=== PATIENT | female | born 1990 | race Hispanic/Latino ===

== ENCOUNTER → 2022-01-22 09:55 | Outpatient (CLI) | payer OTHER, MEDICAID, SELFPAY ==
[2022-01-22 11:30] LABS: Appearance Urine UA CLEAR; Bilirubin Urine UA NEGATIVE (NEGATIVE); Color Urine UA YELLOW; Glucose Urine UA TRACE g/dL (Negative); Ketones Urine UA 1+ (NEGATIVE); Leukocyte Esterase Urine UA NEGATIVE (NEGATIVE); Nitrite Urine UA NEGATIVE (Negative); Occult Blood Urine UA NEGATIVE (Negative); Protein Urine UA NEGATIVE (Negative); Specific Gravity Urine UA 1.015 (1.000-1.035); Urobilinogen Urine UA 0.2 E.U./dL (0.2)
[2022-01-22 11:53] LABS: pH Urine UA 6.5 (4.5-8.0)
[2022-01-22 12:07] LABS: Bacteria Urine Many (>30); Culture Indicated Urine Cult Not Indicated; RBC Urine 0-1/HPF (0-5/HPF); Squamous Epithelial Cell Urine 10-30 /HPF (0-5/HPF); WBC Urine 0-1/HPF (0-5/HPF)
[2022-01-22 12:08] LABS: Pregnancy Test Urine Positive (Negative)
== END ==
PROVIDERS: PCP Family Medicine; Referring Provider Family Medicine; Visit Provider Family Medicine
DX: H93.A9 Pulsatile tinnitus, unspecified ear (principal); R10.9 Unspecified abdominal pain
CPT/HCPCS: 81001; 81025

== ENCOUNTER → 2022-02-18 11:50 | Outpatient (CLI) | payer OTHER, MEDICAID, SELFPAY ==
--- NOTE | 2022-02-18 11:51 | DI.US.S_ITS ---
PROCEDURE: US OB <= 14 WEEKS FETUS INDICATIONS: DATING AND VIABILITY OUTSIDE/PRIOR DATING DATA: Last menstrual period (LMP): Unknown LMP-based estimated date of delivery (JAYDA): Unknown. First dating scan (date and location): 02/18/2022. Estimated date of delivery (JAYDA) from first dating scan: 09/15/2022. The calculations are made using the ultrasound JAYDA of 09/15/2022. TECHNIQUE: Real-time scanning was performed of the fetus and maternal pelvic organs, with image documentation. Endovaginal scanning was also performed to better visualize the fetus and maternal ovaries. COMPARISON: None. FINDINGS: Embryo: Leith-Hatfield-rump length measures 3.2 cm and measures 10 weeks 1 day. Heart rate: 185 Maternal organs: Maternal ovaries are within normal limits. IMPRESSION: Single live intrauterine with a composite ultrasound age of 10 weeks 1 day. We strive to produce accurate, complete, and clear reports of imaging services. To assist us in improving patient care, this report was composed using standard report templates and voice recognition software. Therefore, it may contain abnormal punctuation, insertions and/or omissions. Occasional wrong-word or sound-alike substitutions may occur. Though we review the report and make efforts to correct it, we do recommend that the report be read carefully in proper context to recognize any text inaccuracies. Dictated by: Chris Sanchez M.D. on 02/18/2022 at 21:17 Approved by: Chris Sanchez M.D. on 02/18/2022 at 21:20
== END ==
PROVIDERS: PCP Family Medicine; Referring Provider Obstetrics & Gynecology; Visit Provider Obstetrics & Gynecology
DX: Z34.81 Encounter for supervision of other normal pregnancy, first trimester (principal); Z3A.10 10 weeks gestation of pregnancy
CPT/HCPCS: 76801; 76817

== ENCOUNTER → 2022-03-06 16:01 | Outpatient (CLI) | payer OTHER, MEDICAID, SELFPAY ==
[2022-03-06 16:57] LABS: Add Manual Diff / Slide Review NO; Basophils Absolute Auto 100 /uL (0-100); Basophils Percent Auto 0.9 % (0-2); Eosinophils Absolute Auto 300 /uL (0-450); Eosinophils Percent Auto 3.3 % (2-4); Hematocrit 37.1 % (36-46); Hemoglobin 12.5 g/dL (12.0-16.0); Lymphocytes Absolute Auto 3100 /uL (1100-4500); Mean Corpuscular HGB Conc 33.8 % (30-36); Mean Corpuscular Volume 82.7 fL (80-100); Monocytes Absolute Auto 700 /uL (0-900); Monocytes Percent Auto 6.4 % (3-14); Neutrophils Absolute Auto 6100 /uL (1500-7000); Neutrophils Percent Auto 59.4 % (50-75); Platelet Count 275 X10^3/uL (150-400); Red Blood Cell Count 4.48 X10^6/uL (4.0-5.2); Red Cell Distribution Width 14.4 % (11.6-14.8); White Blood Cell Count 10.3 X10^3/uL (4.5-11.0)
[2022-03-06 17:28] LABS: Alanine Aminotransferase 9 IU/L (<35); Albumin 3.9 g/dL (3.5-5.0); Albumin Globulin Ratio 1.2 (1.0-2.8); Alkaline Phosphatase 79 U/L (38-126); Aspartate Aminotransferase 18 IU/L (14-36); Bilirubin Total 0.2 mg/dL (0.2-1.3); Bilirubin Unconjugated 0.3 mg/dL (0.0-1.1); Globulin 3.3 g/dL (1.7-4.1); HEMOLYSIS < 15 (0-50); Total Protein 7.2 g/dL (6.3-8.2)
[2022-03-07 00:33] LABS: Hepatitis B Surface Antigen NEGATIVE s/c (NEGATIVE); Rubella Antibody IgG 5.9 IU/mL (>15)
[2022-03-07 00:50] LABS: HIV 1 & 2 Ab/Ag 4th Gen Combo NEGATIVE (NEGATIVE); Hep C Virus Ab w/Reflex Quant NEGATIVE s/c (NEGATIVE)
[2022-03-07 07:26] LABS: RPR Screen Non Reactive (Non Reactive)
[2022-03-07 09:26] LABS: Varicella IgG Antibody 520 index (Immune >165)
== END ==
PROVIDERS: PCP Family Medicine; Referring Provider Obstetrics & Gynecology; Visit Provider Obstetrics & Gynecology
DX: Z34.81 Encounter for supervision of other normal pregnancy, first trimester (principal); Z22.7 Latent tuberculosis
CPT/HCPCS: 36415; 80055; 80076; 86787; 86803; 86850; 86900; 86901; 87086; 87389

== ENCOUNTER → 2022-04-08 09:37 | Outpatient (CLI) | payer OTHER, MEDICAID, SELFPAY ==
[2022-04-08 10:42] LABS: Alanine Aminotransferase 11 IU/L (<35); Albumin 3.7 g/dL (3.5-5.0); Alkaline Phosphatase 90 U/L (38-126); Aspartate Aminotransferase 17 IU/L (14-36); Bilirubin Total 0.3 mg/dL (0.2-1.3); Bilirubin Unconjugated 0.4 mg/dL (0.0-1.1); Globulin 3.7 g/dL (1.7-4.1); HEMOLYSIS < 15 (0-50); Total Protein 7.4 g/dL (6.3-8.2)
[2022-04-10 19:36] LABS: AFP, Serum 19.2 ng/mL (.); Inhibin A, Dimeric 84.44 pg/mL (.); Inhibin A, MoM 0.64 (.); Maternal Ethnicity Other (.); Maternal Weight 201 lbs (.); Number of Fetuses No (.); OSBR Risk 1 IN 10000 (.); Results Report (.); Test Results *Screen Negative* (.); hCG, MoM 0.36 (.); hCG, Serum 9983 mIU/mL (.)
== END ==
PROVIDERS: PCP Family Medicine; Referring Provider Obstetrics & Gynecology; Visit Provider Obstetrics & Gynecology
DX: Z34.82 Encounter for supervision of other normal pregnancy, second trimester (principal); Z3A.17 17 weeks gestation of pregnancy; Z22.7 Latent tuberculosis; R31.9 Hematuria, unspecified
CPT/HCPCS: 36415; 80076; 82105; 82677; 84702; 86336; 87077; 87086; 87147

== ENCOUNTER → 2022-06-09 08:18 | Outpatient (CLI) | payer OTHER, MEDICAID, SELFPAY ==
--- NOTE | 2022-06-09 08:20 | DI.RAD.S_ITS ---
PROCEDURE: XR CHEST 2V INDICATIONS: Latent TB, R/O active disease TECHNIQUE: 2 views of the chest were acquired. COMPARISON: None. FINDINGS: Surgical changes and devices: None. Lungs and pleura: Lungs are clear. No pleural effusions or pneumothorax. Mediastinum: Mediastinal contours are normal. Heart size is normal. Bones and chest wall: No suspicious bony abnormalities. Soft tissues appear unremarkable. IMPRESSION: No acute cardiopulmonary findings. Dictated by: Kellen Garcia M.D. on 06/09/2022 at 9:25 Approved by: Kellen Garcia M.D. on 06/09/2022 at 9:25
[2022-06-09 09:55] LABS: Hematocrit 32.4 % (36-46); Hemoglobin 10.8 g/dL (12.0-16.0)
[2022-06-09 10:17] LABS: Alanine Aminotransferase 21 IU/L (<35); Albumin 3.1 g/dL (3.5-5.0); Albumin Globulin Ratio 0.9 (1.0-2.8); Alkaline Phosphatase 111 U/L (38-126); Aspartate Aminotransferase 21 IU/L (14-36); Bilirubin Total 0.3 mg/dL (0.2-1.3); Bilirubin Unconjugated 0.3 mg/dL (0.0-1.1); GTT (PREG) 1 Hour PP 50gm Dose 104 mg/dL (76-139); Globulin 3.4 g/dL (1.7-4.1); HEMOLYSIS < 15 (0-50); Total Protein 6.5 g/dL (6.3-8.2)
== END ==
PROVIDERS: PCP Family Medicine; Referring Provider Obstetrics & Gynecology; Visit Provider Obstetrics & Gynecology
DX: O99.830 Other infection carrier state complicating pregnancy; O12.12 Gestational proteinuria, second trimester; Z22.7 Latent tuberculosis; Z79.899 Other long term (current) drug therapy; Z3A.26 26 weeks gestation of pregnancy
CPT/HCPCS: 36415; 71046; 80076; 82570; 82950; 84156; 85014; 85018

== ENCOUNTER → 2022-06-09 08:56 | Outpatient (CLI) | payer OTHER, MEDICAID, SELFPAY ==
[2022-06-09 11:41] LABS: Creatinine Urine Random 187.8 mg/dL; Protein (Total) Urine Random < 5 mg/dL (0-12); Protein Creatinine Ratio Urine 0.02 GRAM/24H
== END ==
PROVIDERS: PCP Family Medicine; Visit Provider Obstetrics & Gynecology
DX: Z34.82 Encounter for supervision of other normal pregnancy, second trimester (principal); R80.9 Proteinuria, unspecified; Z3A.26 26 weeks gestation of pregnancy
CPT/HCPCS: 82570; 84156

== ENCOUNTER → 2022-07-21 14:59 | Outpatient (CLI) | payer OTHER, MEDICAID, SELFPAY ==
[2022-07-21 16:21] LABS: Alanine Aminotransferase 13 IU/L (<35); Albumin 3.3 g/dL (3.5-5.0); Alkaline Phosphatase 129 U/L (38-126); Aspartate Aminotransferase 20 IU/L (14-36); Bilirubin Total 0.4 mg/dL (0.2-1.3); Bilirubin Unconjugated 0.1 mg/dL (0.0-1.1); Globulin 3.4 g/dL (1.7-4.1); HEMOLYSIS < 15 (0-50); Total Protein 6.7 g/dL (6.3-8.2)
== END ==
PROVIDERS: PCP Family Medicine; Referring Provider Obstetrics & Gynecology; Visit Provider Obstetrics & Gynecology
DX: Z22.7 Latent tuberculosis (principal); Z79.899 Other long term (current) drug therapy
CPT/HCPCS: 36415; 80076

== ENCOUNTER → 2022-08-19 15:06 | Outpatient (CLI) | payer OTHER, MEDICAID, SELFPAY ==
[2022-08-19 16:20] LABS: Alanine Aminotransferase 14 IU/L (<35); Albumin 3.4 g/dL (3.5-5.0); Albumin Globulin Ratio 0.9 (1.0-2.8); Alkaline Phosphatase 144 U/L (38-126); Aspartate Aminotransferase 22 IU/L (14-36); Bilirubin Total 0.2 mg/dL (0.2-1.3); Globulin 3.6 g/dL (1.7-4.1); HEMOLYSIS < 15 (0-50)
== END ==
PROVIDERS: PCP Family Medicine; Referring Provider Obstetrics & Gynecology; Visit Provider Obstetrics & Gynecology
DX: Z34.83 Encounter for supervision of other normal pregnancy, third trimester (principal); A15.9 Respiratory tuberculosis unspecified; Z22.7 Latent tuberculosis; Z3A.36 36 weeks gestation of pregnancy
CPT/HCPCS: 36415; 80076

== ENCOUNTER 2022-09-09 19:41 | Inpatient (IN) | payer OTHER, MEDICAID, SELFPAY ==
--- NOTE | 2022-09-09 20:40 | P.HPOB_ITS ---
OB HPI Date/Time Date of admission: 09/09/22 Date Patient Seen: 09/09/22 Time Patient Seen: 20:40 History of Present Condition Chief complaint: IUP, 39+2 wks EGA, latent TB on isoniazid, GBS + : 3 Para: 2 Estimated Date of Delivery: 09/15/22 Estimated Gestational Age (weeks): 39+2 Narrative: Tatyana Jones is a 31 year old , JAYDA 09/15/2022 admitted for cervical ripening/induction now at 30+ 2 weeks gestational age due to her history of latent tuberculosis for which she is currently receiving isoniazid 300 mg daily and pyridoxine 25 mg. Liver functions have been normal throughout the course of her therapy but Maternal- Medicine consultation has recommended delivery prior to 40+ 0 weeks gestational age and therefore she is being induced at this time. course is largely been uneventful otherwise with the appropriate milestones and solid dating. GBS is positive. Indications Indication for induction OB: other (Latent tuberculosis on isoniazid therapy) History of Present care: good care Dating criteria: LMP confirmed by 1st trimester US Ultrasounds: normal 1st trimester US and normal mid trimester US Obstetrical complications: none Medical complications: other (Latent tuberculosis on isoniazid therapy) Preadmission Labs Blood type: B (+) positive -: Antibody screen: negative, GBS status: positive, HBsAG: negative, HIV: negative and RPR/VDLR: negative -: Chlamydia screen: not detected and Gonorrhea screen: not detected -: Rubella: not immune and Varicella: immune HCT: 33.9 HCAB: negative PAP: Normal Quad screen: Normal 1 hr GTT: 104 Prior (ies) History: ; x 2 Evaluation Evaluation Baseline heart rate: 125 Variability: Moderate (11-25) monitor accelerations: Present Monitor Decelerations: Absent Contraction Frequency (minutes): 4 Uterine Contraction Intensity: Mild Category of Tracing: Reactive Status: Category l Dilation (cm): 2 Effacement (%): 80 Dilation: 1-2 cm Effacement: >/=80% station: -2 Position of cervix: mid Consistency: soft Silvestre score: 8 [facility] Medical History (Updated 08/27/22 @ 08:24 by Robina Gauthier MD) Asthma Hearing loss Rectal fissure Sciatica Tuberculosis Surgical History (Updated 02/24/22 @ 09:29 by Soledad Brown RN) [place] teeth extracted Family History (Updated 02/24/22 @ 09:30 by Soledad Brown RN) Mother Hypertension COPD (chronic obstructive pulmonary disease) Social History marital status: unmarried,single number of children: 2 household members: friend(s) lives independently: Yes housing: house pets and animals: Yes (1 dog) education level: high school occupational status: employed 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, out of room for xrays, 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) special inocencio needs: No travel history: recent (domestic only) seatbelt use: always water heater temp set < 120 deg: Yes working smoke detector in home: Yes fire extinguisher in home: Yes carbon monox detector in home: Yes firearms in home: Yes firearms unloaded and locked: Yes do you feel safe at home: Yes Smoking Status: Former smoker Tobacco: How many years used: 5 second hand exposure: Yes (all housemates smoke outside) alcohol intake: former (occasionally 1-2 prior to ) substance use type: does not use during the past year weight has: remained stable well-balanced diet: about half the time daily servings fruits/ve-1 caffeine: Yes (Aware of 200mg limit) Meds Home Medications and Allergies Home Medications Medication Instructions Recorded Confirmed Type mecobalamin (vitamin B12) 1,000 1,000 mcg PO DAILY PRN per pt. 02/24/22 09/09/22 History mcg chewable tablet (B12 Active) prenat.vits,christiane,fes-gfcf-bstiy 1 tab PO DAILY 02/24/22 09/09/22 History isoniazid 300 mg tablet 300 mg PO DAILY #90 tabs 03/12/22 09/09/22 Rx pyridoxine (vitamin B6) 25 mg 25 mg PO DAILY #90 tabs 03/12/22 09/09/22 Rx tablet albuterol sulfate 90 mcg/actuation 2 puff inhalation Q6H PRN 05/06/22 09/09/22 Rx aerosol inhaler shortness of breath or wheezing #8.5 grams montelukast 10 mg tablet 10 mg PO DAILY #30 tabs 06/12/22 09/09/22 Rx (Singulair) Allergies Allergy/AdvReac Type Severity Reaction Status Date / Time No Known Drug Allergies Allergy Unverified 09/08/22 08:47 Review of Systems Review of Systems Narrative: Problem-specific ROS positives included in HPI OB Exam Vital signs Blood Pressure: 94/62 Pulse Rate: 63 Temperature: 96.6 F HENMT Head: normal to inspection, normocephalic and atraumatic Eyes General: appearance normal, both eyes and all related structures Resp Effort & Inspection: normal respiratory effort and able to speak in complete sentences Auscultation: clear to auscultation bilaterally Cardio Rate: regular rate Rhythm: regular rhythm Heart Sounds: S1 normal, S2 normal and no murmurs Extremities Lower extremity: Yes normal to inspection GI Inspection: normal to inspection Palpation: Yes soft and Yes no hepatosplenomegaly Uterus Location (Fundal Height): 37 Estimated Weight (lbs): 8 Objective Labs 09/09/22 21:00 Assessment and Plan Assessment and Plan Assessment and Plan narrative: ASSESSMENT 1. Intrauterine , 40+2 weeks EGA 2. Latent tuberculosis, currently on isoniazid therapy 3. GBS positive status PLAN 1. Admit for ripening/induction/delivery 2. See admission orders Time Spent with Patient Total time spent with greater than 50% in coordination of care (as documented) at patient's floor/unit and/or counseling patient:: 15-24 minutes
[2022-09-09] MEDS: PENICILLIN G POTASSIUM 5,000,000 UNIT in DEXTROSE 5% IN WATER 250 ML 250 UNIT IV (21:13)
[2022-09-09] MEDS: LACTATED RINGERS 1,000 ML 100 ML IV (21:13)
[2022-09-09 21:22] LABS: Add Manual Diff / Slide Review NO; Basophils Absolute Auto 100 /uL (0-100); Basophils Percent Auto 0.7 % (0-2); Eosinophils Absolute Auto 200 /uL (0-450); Eosinophils Percent Auto 1.8 % (2-4); Hematocrit 33.9 % (36-46); Hemoglobin 11.3 g/dL (12.0-16.0); Lymphocytes Absolute Auto 2900 /uL (1100-4500); Lymphocytes Percent Auto 28.6 % (25-40); Mean Corpuscular HGB Conc 33.4 % (30-36); Mean Corpuscular Hemoglobin 27.4 PG (26-34); Monocytes Absolute Auto 600 /uL (0-900); Monocytes Percent Auto 6.2 % (3-14); Neutrophils Absolute Auto 6500 /uL (1500-7000); Neutrophils Percent Auto 62.7 % (50-75); Platelet Count 258 X10^3/uL (150-400); Red Blood Cell Count 4.13 X10^6/uL (4.0-5.2); Red Cell Distribution Width 14.8 % (11.6-14.8); White Blood Cell Count 10.3 X10^3/uL (4.5-11.0)
[2022-09-09 21:59] LABS: Alanine Aminotransferase 14 IU/L (<35); Albumin Globulin Ratio 0.8 (1.0-2.8); Alkaline Phosphatase 150 U/L (38-126); Aspartate Aminotransferase 25 IU/L (14-36); Bilirubin Total 0.3 mg/dL (0.2-1.3); Bilirubin Unconjugated 0.1 mg/dL (0.0-1.1); Globulin 3.6 g/dL (1.7-4.1); HEMOLYSIS < 15 (0-50); Total Protein 6.6 g/dL (6.3-8.2)
[2022-09-10] MEDS: PENICILLIN G POTASSIUM 3,000,000 UNIT/50 ML FROZ.PIGGY 100 UNIT IV ×3 (00:54→09:09)
[2022-09-10] MEDS: miSOPROStoL 25 MCG TABLET 50 MCG PO (02:06)
[2022-09-10 08:09] VITALS: BP 94/62; PULSE 63; TEMP 35.9
[2022-09-10] MEDS: LACTATED RINGERS 1,000 ML 100 ML IV (09:08)
[2022-09-10] MEDS: OXYTOCIN PREMIX 30 UNIT/500 ML PLAST..BAG IV (09:09)
[2022-09-10] MEDS: OXYTOCIN 10 UNIT/ML VIAL IM (12:21)
--- NOTE | 2022-09-10 12:44 | PM.OBPRVD ---
Events: Other Labor & Delivery Intrapartal Events: Deceleration (Terminal bradycardia) Cervical ripening method: per Cervidil protocol Induction method: per pitocin protocol Delivery augmentation: rupture of membranes Delivery monitor: external FHT and external uterine Route of delivery: Episiotomy description: None L&D Laceration Description: Periurethral - 1st Degree (Hemostatic, no repair required) and Perineal - 1st Degree (Hemostatic, no repair required) Estimated blood loss (mL): 150 Complications: None Narrative: With Pitocin augmentation the patient progressed well to the 2nd stage of labor but developed a terminal bradycardia with a heart rate remain in the 90 beats per minute range until delivery. AROM was performed demonstrating clear fluid and patient pushed vigorously a single time and delivered spontaneously over an intact perineum. No shoulder dystocia was encountered and a single nuchal cord was reduced after delivery of the infant. The placenta delivered spontaneously immediately after the infant suggesting the presence of a terminal abruption. The umbilical cord was therefore clamped immediately and cord blood specimen was obtained for routine studies. Skin to skin contact was initiated immediately and the baby was vigorous. IM Pitocin 10 units was administered because her IV had infiltrated during the 2nd stage. Inspection of the perineum showed a superficial first-degree left-sided periurethral laceration which was hemostatic and did not require repair as well as a superficial first-degree perineal laceration which was also hemostatic and did not require closure. Mother and tolerated the delivery process well. Baby 1: gender: Male Presentation: vertex Position: Left Occiput Anterior Placenta delivery description: Spontaneous Cord Vessel Description: 3 Vessels score (1 min): 6 score (5 min): 8 weight: 6 lb 4.531 oz
[2022-09-10] MEDS: IBUPROFEN 600 MG TABLET PO ×2 (13:08→18:42)
[2022-09-10] MEDS: ACETAMINOPHEN 325 MG TABLET 650 MG PO ×2 (13:08→18:41)
[2022-09-10] MEDS: OXYCODONE IR 5 MG TABLET PO (13:09)
[2022-09-10] MEDS: DERMOPLAST SPRAY 20% 60 ML 1 SPRAY TOP (13:09)
[2022-09-11] MEDS: ACETAMINOPHEN 325 MG TABLET 650 MG PO ×2 (00:47→09:21)
[2022-09-11] MEDS: IBUPROFEN 600 MG TABLET PO ×2 (00:48→09:20)
[2022-09-11 06:32] LABS: Add Manual Diff / Slide Review NO; Basophils Absolute Auto 100 /uL (0-100); Eosinophils Absolute Auto 300 /uL (0-450); Eosinophils Percent Auto 3.3 % (2-4); Hematocrit 31.9 % (36-46); Hemoglobin 10.7 g/dL (12.0-16.0); Lymphocytes Absolute Auto 2700 /uL (1100-4500); Mean Corpuscular HGB Conc 33.4 % (30-36); Mean Corpuscular Hemoglobin 27.6 PG (26-34); Mean Corpuscular Volume 82.5 fL (80-100); Monocytes Absolute Auto 600 /uL (0-900); Monocytes Percent Auto 6.6 % (3-14); Neutrophils Absolute Auto 5800 /uL (1500-7000); Neutrophils Percent Auto 61.1 % (50-75); Platelet Count 199 X10^3/uL (150-400); Red Blood Cell Count 3.86 X10^6/uL (4.0-5.2); Red Cell Distribution Width 14.9 % (11.6-14.8); White Blood Cell Count 9.5 X10^3/uL (4.5-11.0)
--- NOTE | 2022-09-11 07:51 | P.DS_ITS ---
Discharge Providers Provider Date of admission: 09/09/22 19:41 Discharge Date: 09/11/22 Primary care physician: Fox Sagastume MD Consults: 09/09/22 20:18 Consult to Anesthesiology Urgent Comment: Consulting Provider: Oral Styles Reason for consultation: Epidural Has provider been notified: No 09/11/22 12:34 Consult to Skating Rink Manager Routine Comment: Discharge provider: Oral Styles MD Summary Hospital Course Date Patient Seen: 09/11/22 Time Patient Seen: 07:52 Diagnoses: Intrauterine gestation, 39+ 2 weeks gestational age, delivered by spontaneous vaginal Latent tuberculosis, currently under treatment with isoniazid GBS positive status Hospital Course: Tatyana was admitted on the evening of 09/09/2022 for cervical ripening and induction at the recommendation of [facility] due to her ongoing treatment for laten t tuberculosis with isoniazid. Intravenous penicillin was initiated for GBS prophylaxis and patient received Cytotec 50 mcg orally for cervical ripening. On the morning of 09/10/2022, Pitocin augmentation was initiated and patient delivered mid day on 09/10/2022 a viable male over an intact perineum. Following delivery, both mother and baby have done extremely well with the mother experiencing prompt return of bowel and bladder function, she is ambulating independently, tolerating a regular diet, and her pain is well controlled with oral pain medications. She will be discharged at this time to home in an afebrile normotensive condition after counseling regarding precautionary symptoms, limitations of activity, medications, and plans for follow-up which will be in 6 weeks. Medications at discharge will include resumption of all her preadmission medications, and oxycodone 5 mg every 6 hours as needed for pain #12 with no refills, and ibuprofen 600 mg p.o. q.6 hours as needed pain dispensed 30 with 2 refills. Peripartum Data Delivery Method: Natural Vaginal Laceration Description: Periurethral - 1st Degree and Perineal - 1st Degree Episiotomy description: None complications: none 1: Gender: Male Disposition of : home Status at Discharge Cognitive/behavioral status at discharge: oriented Functional status at discharge: independent ambulation Overall status at discharge: patient is progressing back to baseline Time Spent with Patient Time attestation: Total time spent providing and/or coordinating discharge services: Time spent: Less than 30 minutes Objective Labs 09/11/22 06:10 Labs: Laboratory Results - last 24 hr 09/11/22 06:10 WBC 9.5 RBC 3.86 L Hgb 10.7 L Hct 31.9 L MCV 82.5 MCH 27.6 MCHC 33.4 RDW 14.9 H Plt Count 199 Neut % (Auto) 61.1 Lymph % (Auto) 28.0 [place] % (Auto) 6.6 Eos % (Auto) 3.3 Baso % (Auto) 1.0 Neut # (Auto) 5800 Lymph # (Auto) 2700 [place] # (Auto) 600 Eos # (Auto) 300 Baso # (Auto) 100 Exam Const General: cooperative and comfortable Nutritional Appearance: average body habitus Orientation: alert and oriented x3 HENMT Head: normal to inspection, atraumatic and abrasion Ears: hearing grossly normal bilaterally Face and sinus: face symmetric Eyes General: appearance normal, both eyes and all related structures Conjunctivae: conjunctivae normal Sclera: sclerae normal EOM: EOM intact bilaterally Neck Neck: normal visual inspection Resp Effort & Inspection: normal respiratory effort and able to speak in complete sentences GI Inspection: normal to inspection Palpation: soft, no hepatosplenomegaly and mass (Firm, minimally tender fundus U-3) External Female Exam: other (No significant bleeding noted) Extrem General: no calf tenderness Psych Appearance: grossly normal Mental Status: mental status grossly normal Speech and Movement: speech and movement normal Mood: congruent mood Affect: normal affect Attitude: cooperative Thought Process: normal Thought Content: normal Judgment: judgment good Discharge Plan Discharge Plan Patient Disposition: Home Provider Discharge Comment: Please review the written instructions you received when you were discharged from the hospital. Your follow-up appointment will be scheduled for 6 weeks after delivery and I look forward to seeing you then. If however in the meanwhile you have any concerns, problems, or questions, please contact me either through the office phone at [phone], or via the patient portal. Discharge orders & Medications Prescriptions: New ibuprofen 600 mg Tablet 600 mg PO Q6HR PRN (Reason: Pain, Mild (1-3)) Qty: 30 2RF oxycodone 5 mg Tablet 5 mg PO Q6H PRN (Reason: Pain, Moderate (4-6)) Qty: 12 0RF Continued isoniazid 300 mg tablet 300 mg PO DAILY Qty: 90 1RF pyridoxine (vitamin B6) 25 mg tablet 25 mg PO DAILY Qty: 90 1RF albuterol sulfate 90 mcg/actuation HFA aerosol inhaler 2 puff inhalation Q6H PRN (Reason: shortness of breath or wheezing) Qty: 8.5 1RF montelukast [Singulair] 10 mg tablet 10 mg PO DAILY Qty: 30 3RF prenat.vits,christiane,emv-awmu-ltwlo Tablet 1 tab PO DAILY B12 Active 1,000 mcg tablet,chewable 1,000 mcg PO DAILY PRN (Reason: per pt.) Follow up/Referrals: Fox Sagastume MD [Primary Care Provider] - Oral Styles MD [Physician] - Discharge Health Status Multidrug resistant organism: No MDRO Diet/Activity/Treatments Diet: Diet as Tolerated Activity: As tolerated Other treatments: Dzzy-dim-ndymytb Tylenol may be used for additional pain relief. Eund-fdq-ksuxyel stool softeners and/or MiraLax may be used as needed for constipation. Skin/Wound/Dressing Care Report to your healthcare provider any signs of infection, such as:: chills, fever, increased pain, unusual drainage and unusual redness Dressing: N/A Visit Report/Discharge Packet Instructions: DI for Labor and Delivery, Vaginal , DI for and Nipple Soreness, DI for Prescription Opioid Use Discharge Data Primary Care Provider: Fox Sagastume
[2022-09-11 13:45] VITALS: BP 94/62; PULSE 63; TEMP 35.9
== END 2022-09-11 13:12 | disposition home or self-care (01) | DRG 560 ==
PROVIDERS: Admitting Provider Obstetrics & Gynecology; PCP Family Medicine; Referring Provider Obstetrics & Gynecology; Visit Provider Obstetrics & Gynecology
DX: O99.824 Streptococcus B carrier state complicating childbirth (principal); O98.02 Tuberculosis complicating childbirth; Z22.7 Latent tuberculosis; Z3A.39 39 weeks gestation of pregnancy; Z37.0 Single live birth; O76 Abnormality in fetal heart rate and rhythm complicating labor and delivery
CPT/HCPCS: 36415; 59050; 59200; 59409; 80076; 85025; 86850; 86900; 86901; G0379; J2540; J2590

== ENCOUNTER → 2023-01-02 08:53 | Outpatient (CLI) | payer OTHER, MEDICAID, SELFPAY ==
[2023-01-02 11:03] LABS: Urine N gonorrhoeae NOT DETECTED
[2023-01-02 11:41] LABS: Urine Chlamydia NOT DETECTED
== END ==
PROVIDERS: PCP Family Medicine; Visit Provider Nurse Practitioner Family
DX: N89.8 Other specified noninflammatory disorders of vagina (principal)
CPT/HCPCS: 87210; 87491; 87591

== ENCOUNTER → 2023-03-10 16:01 | Outpatient (CLI) | payer OTHER, MEDICAID, SELFPAY ==
--- NOTE | 2023-03-10 16:05 | DI.US.S_ITS ---
PROCEDURE: US PELVIC COMPLETE INDICATIONS: VAGINAL BLEEDING TECHNIQUE: Real-time scanning was performed of the pelvic organs, with image documentation. Additional endovaginal scanning was necessary due to incomplete visualization of the adnexal and endometrial structures by transabdominal scanning. COMPARISON: None. FINDINGS: Uterus: Uterus is anteverted and normal in size at 8.4 x 5.1 x 4.4 cm. The myometrium is homogeneous. The endometrium measures 9 mm combined thickness. No fibroids seen. Cervix is unremarkable. Ovaries: The right ovary measures 2.8 x 2.2 x 2.2 cm, with a calculated ovarian volume of 7 cc. The left ovary measures 2.9 x 2.4 x 2.1 cm, with a calculated ovarian volume of 7 cc. The ovaries have a normal sonographic appearance. Less than 12 follicles can be seen in each ovary. No adnexal masses are seen. Other: No pathologic free abdominal or pelvic fluid. IMPRESSION: 1. Endometrium measures 9 mm. No fibroids seen. 2. No significant ovarian cysts. 3. No free fluid. We strive to produce accurate, complete, and clear reports of imaging services. To assist us in improving patient care, this report was composed using standard report templates and voice recognition software. Therefore, it may contain abnormal punctuation, insertions and/or omissions. Occasional wrong-word or sound-alike substitutions may occur. Though we review the report and make efforts to correct it, we do recommend that the report be read carefully in proper context to recognize any text inaccuracies. Dictated by: Brandyn Wesley M.D. on 03/10/2023 at 17:03 Approved by: Brandyn Wesley M.D. on 03/10/2023 at 17:05
[2023-03-10 17:30] LABS: Alanine Aminotransferase 14 IU/L (<35); Albumin 3.5 g/dL (3.5-5.0); Albumin Globulin Ratio 1.1 (1.0-2.8); Alkaline Phosphatase 90 U/L (38-126); Aspartate Aminotransferase 18 IU/L (14-36); Bilirubin Total 0.3 mg/dL (0.2-1.3); Bilirubin Unconjugated 0.2 mg/dL (0.0-1.1); Globulin 3.3 g/dL (1.7-4.1); HEMOLYSIS < 15 (0-50); Total Protein 6.8 g/dL (6.3-8.2)
[2023-03-10 17:40] LABS: HCG Quantitative /Beta subunit < 2.4 mIU/mL
[2023-03-11 03:45] LABS: RPR Screen Non Reactive (Non Reactive)
[2023-03-11 15:55] LABS: Hepatitis B Surface Antigen NEGATIVE s/c (NEGATIVE)
[2023-03-11 16:19] LABS: HIV 1 & 2 Ab/Ag 4th Gen Combo NEGATIVE (NEGATIVE); Hep C Virus Ab w/Reflex Quant NEGATIVE s/c (NEGATIVE)
== END ==
PROVIDERS: Nurse Practitioner Family; PCP Family Medicine; Referring Provider Obstetrics & Gynecology; Visit Provider Obstetrics & Gynecology
DX: O03.9 Complete or unspecified spontaneous abortion without complication (principal); R10.2 Pelvic and perineal pain; N89.8 Other specified noninflammatory disorders of vagina; Z79.899 Other long term (current) drug therapy
CPT/HCPCS: 76830; 76856; 80076; 84702; 86592; 86695; 86696; 86803; 87340; 87389; 93975

== ENCOUNTER → 2023-08-03 11:20 | Outpatient (CLI) | payer OTHER, MEDICAID, SELFPAY ==
[2023-08-03 12:34] LABS: Add Manual Diff / Slide Review NO; Basophils Absolute Auto 100 /uL (0-100); Eosinophils Absolute Auto 500 /uL (0-450); Eosinophils Percent Auto 4.2 % (2-4); Hematocrit 39.8 % (36-46); Lymphocytes Absolute Auto 3800 /uL (1100-4500); Lymphocytes Percent Auto 33.2 % (25-40); Mean Corpuscular HGB Conc 32.6 % (30-36); Mean Corpuscular Hemoglobin 26.3 PG (26-34); Mean Corpuscular Volume 80.8 fL (80-100); Monocytes Absolute Auto 800 /uL (0-900); Monocytes Percent Auto 6.8 % (3-14); Neutrophils Absolute Auto 6200 /uL (1500-7000); Neutrophils Percent Auto 54.8 % (50-75); Platelet Count 314 X10^3/uL (150-400); Red Blood Cell Count 4.92 X10^6/uL (4.0-5.2); Red Cell Distribution Width 14.5 % (11.6-14.8); White Blood Cell Count 11.3 X10^3/uL (4.5-11.0)
[2023-08-03 12:53] LABS: HEMOLYSIS < 15 (0-50); Iron 56 ug/dL (37-170)
[2023-08-03 13:04] LABS: Alanine Aminotransferase 13 IU/L (<35); Albumin 4.1 g/dL (3.5-5.0); Albumin Globulin Ratio 1.1 (1.0-2.8); Alkaline Phosphatase 99 U/L (38-126); Aspartate Aminotransferase 21 IU/L (14-36); BUN Creatinine Ratio 24.1 (6-22); Bilirubin Total 0.5 mg/dL (0.2-1.3); Blood Urea Nitrogen 13 mg/dL (7-17); Calcium 9.4 mg/dL (8.4-10.2); Carbon Dioxide 27 mmol/L (22-32); Chloride 103 mmol/L (98-107); Estimated Glomerular Filt Rate > 60 mL/min (>60); Globulin 3.9 g/dL (1.7-4.1); Glucose 87 mg/dL (70-100); HEMOLYSIS < 15 (0-50); Potassium 4.2 mmol/L (3.4-5.1); Sodium 140 mmol/L (137-145)
[2023-08-03 13:05] LABS: Percent Iron Saturation 16 % (15-50); Total Iron Binding Capacity 346 ug/dL (265-497); Transferrin 266 mg/dL (206-381)
[2023-08-03 13:17] LABS: HCG Quantitative /Beta subunit < 2.4 mIU/mL
[2023-08-03 13:25] LABS: TSH w/ Reflex to FT4 1.27 uIU/mL (0.47-4.68)
[2023-08-03 13:36] LABS: Ferritin 17 ng/mL (6-137)
[2023-08-03 13:50] LABS: Vitamin B12 335 pg/mL (239-931)
== END ==
PROVIDERS: PCP Family Medicine; Referring Provider Physician Assistant; Visit Provider Physician Assistant
DX: R53.83 Other fatigue (principal); N91.2 Amenorrhea, unspecified
CPT/HCPCS: 36415; 80053; 82607; 82728; 83540; 83550; 84443; 84702; 85025

== ENCOUNTER → 2023-08-12 13:54 | Outpatient (CLI) | payer OTHER, MEDICAID, SELFPAY ==
--- NOTE | 2023-08-12 13:55 | DI.US.S_ITS ---
PROCEDURE: US PELVIC COMPLETE INDICATIONS: Amenorrhea; Fatigue TECHNIQUE: Real-time scanning was performed of the pelvic organs, with image documentation. Additional endovaginal scanning was necessary due to incomplete visualization of the adnexal and endometrial structures by transabdominal scanning. COMPARISON: [facility], , US PELVIC COMPLETE, 03/10/2023, 16:12. FINDINGS: Uterus: Uterus is anteverted and normal in size at 8.3 x 5.5 x 3 point cm. The myometrium is homogeneous. The endometrium measures 5 mm combined thickness. Nabothian cysts are present. Ovaries: The right ovary measures 3.4 x 2.4 x 1.9 cm, with a calculated ovarian volume of 8.1 cc. The left ovary measures 2.9 x 2.5 x 1.9 cm, with a calculated ovarian volume of 7.2 cc. The ovaries have a normal sonographic appearance. Less than 12 follicles can be seen in each ovary. No adnexal masses are seen. Other: No pathologic free abdominal or pelvic fluid. IMPRESSION: Normal endometrial thickness measuring 5 millimeters. No uterine fibroids. Approved by: Sarita Silva M.D. on 08/12/2023 at 23:37
== END ==
PROVIDERS: PCP Family Medicine; Referring Provider Physician Assistant; Visit Provider Physician Assistant
DX: N91.2 Amenorrhea, unspecified (principal); R53.83 Other fatigue; N88.8 Other specified noninflammatory disorders of cervix uteri
CPT/HCPCS: 76830; 76856

== ENCOUNTER → 2023-09-13 08:44 | Outpatient (CLI) | payer OTHER, MEDICAID, SELFPAY ==
[2023-09-13 09:31] LABS: Influenza A - CEPHEID Flu A NEGATIVE (NEGATIVE); Influenza B - CEPHEID Flu B NEGATIVE (NEGATIVE); Respiratory Syncytial Virus Negative (Negative)
[2023-09-13 09:39] LABS: COVID-19 CEPHEID 4-PLEX PCR POSITIVE (Negative)
== END ==
LOC: LAB 08:45
PROVIDERS: PCP Family Medicine; Visit Provider Physician Assistant
DX: R05.9 Cough, unspecified (principal); R06.89 Other abnormalities of breathing
CPT/HCPCS: 87635; 87400 ×2; 87420; 0241U

== ENCOUNTER → 2023-12-27 14:19 | Outpatient (CLI) | payer OTHER, MEDICAID, SELFPAY ==
--- NOTE | 2023-12-27 14:46 | DI.RAD.S_ITS ---
PROCEDURE: XR CHEST 2V INDICATIONS: 3 weeks cough/wheezing. Hx with asthma, latent TB TECHNIQUE: 2 views of the chest were acquired. COMPARISON: [facility], CR, XR CHEST 2V, 06/09/2022, 8:21. FINDINGS: Surgical changes and devices: None. Lungs and pleura: Lungs are clear. No pleural effusions or pneumothorax. Mediastinum: Mediastinal contours are normal. Heart size is normal. Bones and chest wall: No suspicious bony abnormalities. Soft tissues appear unremarkable. IMPRESSION: No acute cardiopulmonary abnormality is seen. Approved by: Sarita Silva M.D.,Ph.D. on 12/27/2023 at 21:17
[2023-12-27 15:37] LABS: Influenza A - CEPHEID Flu A NEGATIVE (NEGATIVE); Influenza B - CEPHEID Flu B NEGATIVE (NEGATIVE); Respiratory Syncytial Virus Negative (Negative)
[2023-12-27 15:46] LABS: COVID-19 CEPHEID 4-PLEX PCR Negative (Negative)
== END ==
PROVIDERS: PCP Family Medicine; Referring Provider Physician Assistant; Visit Provider Physician Assistant
DX: R05.9 Cough, unspecified (principal); J06.9 Acute upper respiratory infection, unspecified
CPT/HCPCS: 87635; 87400 ×2; 87420; 0241U; 71046